=== PATIENT | male | born 1995 | race Caucasian/White ===

== ENCOUNTER 2018-07-24 18:01 | Emergency (ER) | payer OTHER ==
[2018-07-24 18:21] VITALS: BP 110/62; PULSE 90; RESP 18; TEMP 99
[2018-07-24] MEDS ORDERED: ACETAMINOPHEN TAB 325 MG TAB PO STA (18:47)
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
== END 2018-07-24 21:04 | disposition home or self-care (01) ==
LOC: EC 18:01
DX: S93.401A Sprain of unspecified ligament of right ankle, initial encounter (principal); S89.91XA Unspecified injury of right lower leg, initial encounter; Z91.013 Allergy to seafood; V86.06XA Driver of dirt bike or motor/cross bike injured in traffic accident, initial encounter
CPT/HCPCS: 99283

== ENCOUNTER → 2018-07-29 | Outpatient (CLI) | payer OTHER ==
--- NOTE | 2018-07-29 15:54 | MR ---
EXAMINATION TYPE: MR knee RT wo con DATE OF EXAM: 07/29/2018 2:33 PM COMPARISON: NONE HISTORY: right knee pain TECHNIQUE: Multiplanar, multisequence imaging of the right knee is submitted. FINDINGS: MEDIAL MENISCUS: Anterior and posterior horns are intact without tear. LATERAL MENISCUS: Anterior and posterior horns are intact without tear. CRUCIATE LIGAMENTS: There is ruptured ACL. PCL is intact. COLLATERAL LIGAMENTS: The medial collateral ligament and lateral collateral ligament complex are intact and unremarkable. EXTENSOR MECHANISM: Visualized quadriceps and patellar tendons are intact. EFFUSION: Moderate joint effusion. POPLITEAL CYST: No popliteal/callahan cyst. TRICOMPARTMENT SPACES: The tricompartment joint spaces appear within normal limits. CARTILAGE: The articular cartilage is maintained without abnormal signal or full-thickness defect. BONE MARROW SIGNAL: There is bone marrow edema involving the posterior aspect of the lateral tibial p lateau with subchondral fracture noted. No significant displacement appreciated. Mild bone marrow milady ma involving the lateral femoral condyle. No evidence for associated fracture in this region. OTHER: No additional significant abnormality is appreciated. IMPRESSION: 1. Ruptured ACL. 2. Nondisplaced subchondral fracture posterior lateral tibial plateau. 3. Moderate joint effusion with internal debris.
== END ==
LOC: RADMRIMAIN 13:40
PROVIDERS: ATTEND Orthopaedic Surgery
DX: S82.144A Nondisplaced bicondylar fracture of right tibia, initial encounter for closed fracture (principal); S83.511A Sprain of anterior cruciate ligament of right knee, initial encounter

== ENCOUNTER → 2018-09-02 | Outpatient (CLI) | payer OTHER ==
[2018-09-02 16:21] LABS: Basophils % (A) 1 %; Eosinophils # (A) 0.4 k/uL (0-0.7); Eosinophils % (A) 5 %; HCT 43.6 % (39.0-53.0); HGB 13.8 gm/dL (13.0-17.5); Lymphocytes % (A) 29 %; MCH 28.5 pg (25.0-35.0); MCHC 31.6 g/dL (31.0-37.0); MCV 90.3 fL (80.0-100.0); Mean Platelet Volume 6.7; Monocytes # (A) 0.4 k/uL (0-1.0); Monocytes % (A) 6 %; Neutrophils % (A) 58 %; Platelet Count 292 k/uL (150-450); RBC 4.83 m/uL (4.30-5.90); RDW 12.8 % (11.5-15.5)
== END ==
LOC: LABPAT 15:58
PROVIDERS: ATTEND Orthopaedic Surgery
DX: Z01.812 Encounter for preprocedural laboratory examination (principal); M23.91 Unspecified internal derangement of right knee
CPT/HCPCS: 36415; 80051; 85025